=== PATIENT | female | born 1995 | race African-American/Black ===

== ENCOUNTER 2023-05-25 13:21 | Emergency (ER) | payer SELFPAY ==
[~2023-05-25] VITALS: Ht 162.6 cm; Wt 65.0 kg
[2023-05-25 13:25] VITALS: O2SAT 100
[2023-05-25] MEDS ORDERED: HYDROCODONE/ACETAMINOPHEN 5/325MG TABLET PO ONE (14:45)
[2023-05-25] MEDS ORDERED: NAPR-1176 MT (16:19)
[2023-05-25] MEDS ORDERED: CYCL5TAB MT (16:19)
[2023-05-25 17:05] VITALS: BP 121/74; PULSE 79; RESP 20; TEMP 98.4
== END 2023-05-25 17:06 | disposition home or self-care (01) ==
LOC: ER 14:07
DX: S00.83XA Contusion of other part of head, initial encounter (principal); Z88.0 Allergy status to penicillin; Z88.6 Allergy status to analgesic agent; Z88.8 Allergy status to other drugs, medicaments and biological substances; Z98.890 Other specified postprocedural states; Y08.89XA Assault by other specified means, initial encounter; Y93.89 Activity, other specified; Y92.89 Other specified places as the place of occurrence of the external cause; Y99.8 Other external cause status
CPT/HCPCS: 70486; 81025; 99284